=== PATIENT | female | born 1990 | race Hispanic/Latino ===

== ENCOUNTER 2018-10-27 06:58 | Emergency (ER) | payer OTHER ==
[~2018-10-27] VITALS: Ht 157.5 cm; Wt 63.5 kg
--- NOTE | 2018-10-27 07:35 | NUR ---
attempted to cut ring off with ring cutter, shanta benítez entered room and was able to cut ring with Astrid Raptor judie. ring returnted to patient in 2 pieces.
[2018-10-27] MEDS ORDERED: METHYLPREDNISOLONE SOD SUCC 125 MG/2ML VIAL IM STA (07:39)
[2018-10-27] MEDS ORDERED: HYDROCODONE/APAP 7.5MG-325MG 1 EA TAB PO ONE (07:45)
--- NOTE | 2018-10-28 11:08 | NUR ---
ACCESSED PATIENTS CHART. SHE CALLED BECAUSE SHE COULD NOT RECALL STEROID THAT SHE WAS GIVEN TO HAVE THIS INFORMATION FOR THE SPECIALIST SHE WAS SEEING TODAY FOR FURTHER TREATMENT.
== END 2018-10-27 08:03 | disposition home or self-care (01) ==
LOC: ER 06:58
DX: L40.50 Arthropathic psoriasis, unspecified (principal); W49.04XA Ring or other jewelry causing external constriction, initial encounter
CPT/HCPCS: 99283; J2930